=== PATIENT | male | born 1980 | race Caucasian/White ===

== ENCOUNTER 2018-04-13 08:06 | Emergency (ER) | payer OTHER ==
[~2018-04-13] VITALS: Ht 172.7 cm; Wt 200.4 kg
[2018-04-13] MEDS ORDERED: MOTRIN800 MG PO (09:08)
[2018-04-13 09:44] VITALS: BP 142/99
== END 2018-04-13 09:45 | disposition home or self-care (01) ==
LOC: EME 08:06
DX: S93.401A Sprain of unspecified ligament of right ankle, initial encounter (principal); X50.1XXA Overexertion from prolonged static or awkward postures, initial encounter; W01.0XXA Fall on same level from slipping, tripping and stumbling without subsequent striking against object, initial encounter
CPT/HCPCS: 73610; 99281; 99284